=== PATIENT | male | born 1985 | race Caucasian/White ===

== ENCOUNTER 2021-07-29 17:25 | Emergency (ER) | payer SELFPAY ==
[~2021-07-29] VITALS: Ht 180.3 cm; Wt 93.0 kg
[2021-07-29 18:00] VITALS: BP_SYST 132
--- NOTE | 2021-07-29 18:00 | NUR ---
Pt to remain in the ER lobby until ER bed becomes available.
--- NOTE | 2021-07-29 20:30 | NUR ---
Placed in room 3 .Side rails up. Report given to yara.
--- NOTE | 2021-07-29 20:33 | NUR ---
pt arrived to er with complaints of a laceration to R thumb. pt was working on a engine and recieved a one inch lac to thumb at 1430 today. pt cleaned cut with hydrogen peroxide and wrapped with gauze. pt has no pain now.
--- NOTE | 2021-07-29 20:41 | NUR ---
HILTON Gavin at bedside examining patient.
[2021-07-29] MEDS ORDERED: DIPH-TET-PERTUS Vaccine 0.5 ML VIAL (ADACEL) I.M. ONE (21:00)
--- NOTE | 2021-07-29 21:20 | NUR ---
dr Mueller used dermabond to R thumb, and wrapped with kerlex, and finger splint placed
--- NOTE | 2021-07-29 22:00 | NUR ---
Patient given written and verbal discharge instructions and verbalizes understanding. ER MD discussed with patient the results and treatment provided. Patient in stable condition. ID arm band removed. Patient educated on pain management and to follow up with PMD. Pain Scale 1/10. Opportunity for questions provided and answered. Medication side effect fact sheet provided.
[2021-07-29 22:04] VITALS: BP_SYST 123
== END 2021-07-29 22:00 | disposition home or self-care (01) ==
LOC: SED 17:25
DX: S61.011A Laceration without foreign body of right thumb without damage to nail, initial encounter (principal); W45.8XXA Other foreign body or object entering through skin, initial encounter; Y93.89 Activity, other specified; Y92.89 Other specified places as the place of occurrence of the external cause; Y99.8 Other external cause status
CPT/HCPCS: 90715; 99283